=== PATIENT | female | born 1960 | race Caucasian/White ===

== ENCOUNTER 2019-05-18 19:59 | Emergency (ER) | payer BC, MEDICAID ==
[2019-05-18] MEDS ORDERED: NS 0.9% 1000 ML** 1,000 ML IV ONE (20:36)
[2019-05-18] MEDS ORDERED: Ondansetron INJ* 2 MG/ML VIAL IV ONE (20:36)
--- NOTE | 2019-05-18 20:39 | ED ---
Substance Abuse/Use - HPI Summary HPI Summary: This pt is a 59 Y/O F presenting to [facility] accompanied by her sister and her brother with a CC of alcohol abuse. She states that she doesnt sleep and is so exhausted. She states that she drank some wine throughout the day and did not take her medications. Her sister states that the pt has been vomiting all night without any relief. She states that she has not taken any medications throughout the night. She states that she has chronic low back pain. She states that she has extreme abdominal pain. She states that she has not SI or HI and states that she just wants to sleep throughout the night. She states that she wants help for her drinking. She states that she was drinking every night. There is a strong family history of alcoholism. She states that she drank a bottle of alcohol tonight but isnt sure what the bottle was. She denies any fevers, chills, CP, headaches, headaches, and diaphoresis. She states no alleviating factors. - History Of Current Complaint Chief Complaint: EDSubstanceAbuse Stated Complaint: POSS OVERDOSE Time Seen by Provider: 05/18/19 20:27 Hx Obtained From: Patient Onset/Duration of Drug/ETOH Abuse: Hours - since 1200 Ingestion History: Amount Ingested - unknown, Approximate Time Of Ingestion - 1200 Timing Of Abuse: Daily Severity Initially: Severe Severity Currently: Severe Character: Anxious Aggravating Factor(s): Recent Stress Alleviating Factor(s): Nothing Associated Signs And Symptoms: Negative - fevers, chills, CP, headaches, headaches, and diaphoresis., Sleep Disturbance, Nausea, Vomiting Related Hx: Recent Stressors - Allergies/Home Medications Allergies/Adverse Reactions: Allergies Allergy/AdvReac Type Severity Reaction Status Date / Time MS Fentanyl [Fentanyl] Allergy Intermediate Unknown Verified 12/24/18 13:32 Reaction Details MS Ciprofloxacin [From Cipro] AdvReac Intermediate Vomiting Verified 12/24/18 13 :32 MS Hydrocodone [Hydrocodone] AdvReac Intermediate Vomiting Verified 12/24/18 13: 32 PMH/Surg Hx/FS Hx/Imm Hx Previously Healthy: Yes Endocrine/Hematology History: Denies: Hx Diabetes Cardiovascular History: Denies: Hx Hypertension, Hx Pacemaker/ICD History: Denies: Hx Dialysis, Hx Renal Disease Musculoskeletal History: Reports: Other Musculoskeletal History - chronic low back pain Sensory History: Denies: Hx Hearing Aid Psychiatric History: Denies: Hx Panic Disorder - Cancer History Hx Chemotherapy: No Hx Radiation Therapy: No - Surgical History Surgery Procedure, Year, and Place: 03/21 FUSION AND LAMINECTOMY L2-L3 & 2012 FUSION L3-L4, [facility]. 1989 TUBAL LIGATION Infectious Disease History: No Infectious Disease History: Denies: Traveled Outside the [place] in Last 30 Days - Family History Known Family History: Positive: Other - alcoholism - Social History Occupation: Employed Full-time Lives: With Family Alcohol Use: Daily Hx Substance Use: No Substance Use Type: Reports: None Hx Tobacco Use: No Smoking Status (MU): Never Smoked Tobacco Review of Systems Negative: Fever, Chills, Skin Diaphoresis Negative: Chest Pain Negative: Shortness Of Breath Positive: Abdominal Pain, Vomiting, Nausea Negative: Headache Psychological: Other - Pt states she hasn't slept in months All Other Systems Reviewed And Are Negative: Yes Physical Exam - Summary Physical Exam Summary: Constitutional: Well-developed, Well-nourished, Alert. (-) Distressed Skin: Warm, Dry HENT: Normocephalic; Atraumatic Eyes: Conjunctiva normal Neck: Musculoskeletal ROM normal neck. (-) JVD, (-) Stridor, (-) Tracheal deviation Cardio: Rhythm regular, rate normal, Heart sounds normal; Intact distal pulses; The pedal pulses are 2+ and symmetric. Radial pulses are 2+ and symmetric. (-) Murmur Pulmonary/Chest wall: Effort normal. (-) Respiratory distress, (-) Wheezes, (-) Rales Abd: Soft, mild epigastric and lower abdominal tenderness, (-) Distension, (-) Guarding, (-) Rebound Musculoskeletal: (-) Edema Lymph: (-) Cervical adenopathy Neuro: Alert, Oriented x3 Psych: Mood and affect Normal Triage Information Reviewed: Yes Vital Signs On Initial Exam: Initial Vitals Temp Pulse Resp BP Pulse Ox 98 F 92 20 112/72 97 05/18/19 20:01 05/18/19 20:01 05/18/19 20:01 05/18/19 20:01 05/18/19 20:01 Vital Signs Reviewed: Yes Diagnostics - Vital Signs Vital Signs Temp Pulse Resp BP Pulse Ox 05/18/19 20:01 98 F 92 20 112/72 97 - Laboratory Result Diagrams: 05/18/19 21:01 05/18/19 21:01 Lab Statement: Any lab studies that have been ordered have been reviewed, and results considered in the medical decision making process. Course/Dx - Course Course Of Treatment: Patient is here after binge drinking. Patient has been dealing with alcoholism for the past year after her mother . Patient has no red flag symptoms of mental health. Patient had blood performed which showed INTOXICATION WITH NO OTHER ABNORMALITIES. PATIENT IS GIVEN RESOURCES FOR [facility] where she lives for help with her alcohol addiction. - Diagnoses Provider Diagnoses: Alcohol abuse, Alcohol intoxication, Depression Discharge ED - Sign-Out/Discharge Documenting (check all that apply): Patient Departure - discharge Patient Received Moderate/Deep Sedation with Procedure: No - Discharge Plan Condition: Stable Disposition: HOME Patient Education Materials: Depression (ED), Alcohol Withdrawal (ED), Alcohol Dependence (ED), Alcohol Use Disorder (ED) Referrals: Honey Terry [employer] [Primary Care Provider] - 2 Days Additional Instructions: PLEASE RETURN TO THE EMERGENCY DEPARTMENT FOR ANY NEW OR WORSENING SYMPTOMS. Please use the information provided to you to help with your drinking and depression. Follow up with your primary care provider in 1-3 days. - Billing Disposition and Condition Condition: STABLE Disposition: Home - Attestation Statements Document Initiated by Ge: Yes Documenting Scribe: Johnie Proctor Provider For Whom Ge is Documenting (Include Credential): Derrick Romero MD Scribe Attestation: Johnie Almanzar, scribed for Derrick Romero MD on 05/20/19 at 1119. Scribe Documentation Reviewed: Yes Provider Attestation: The documentation as recorded by the Johnie brian accurately reflects the service I personally performed and the decisions made by , Derrick Romero MD Status of Scribe Document: Viewed
[2019-05-18 21:10] LABS: ABS Lymphocytes 0.7 10^3/ul (1.0-4.8); ABS Monocytes 0.2 10^3/ul (0-0.8); ABS Neutrophils 4.4 10^3/ul (1.5-7.7); Eosinophil % 0.8 %; Hematocrit 44 % (35-47); Hemoglobin 14.7 g/dL (12.0-16.0); Lymphocyte % 12.7 %; Mean Corpuscular HGB Conc 34 g/dL (31-36); Mean Corpuscular Hemoglobin 32 pg (27-31); Mean Corpuscular Volume 95 fL (80-97); Mean Platelet Volume 7.3 fL (7.4-10.4); Nucleated Red Blood Cells % 0.1; Platelet Count 225 10^3/uL (150-450); Red Blood Count 4.61 10^6 /uL (3.70-4.87); Red Cell Distribution Width 13 % (10-15); White Blood Count 5.4 10^3/uL (3.5-10.8)
[2019-05-18 21:25] LABS: Albumin 4.3 g/dL (3.2-5.2); Albumin/Globulin Ratio 1.7 (1-3); BUN/Creatinine Ratio 23.4 (8-20); Calcium 8.9 mg/dL (8.6-10.3); EGFR African American 93.5 (>60); EGFR Non-African American 77.3 (>60); Globulin 2.6 g/dL (2-4); Potassium 3.8 mmol/L (3.5-5.0); Total Bilirubin 0.3 mg/dL (0.2-1.0); Total Protein 6.9 g/dL (6.4-8.9)
[2019-05-18 22:08] VITALS: BP 102/71
== END 2019-05-18 22:07 | disposition home or self-care (01) ==
LOC: ED 19:59
DX: F10.129 Alcohol abuse with intoxication, unspecified (principal); F32.9 Major depressive disorder, single episode, unspecified; R10.13 Epigastric pain; R10.30 Lower abdominal pain, unspecified; R11.2 Nausea with vomiting, unspecified; G89.29 Other chronic pain; M54.5 Low back pain; Z88.1 Allergy status to other antibiotic agents; Z88.5 Allergy status to narcotic agent
CPT/HCPCS: 36415; 80053; 80320; 83690; 85025; 96361; 96374; 99282; G0480; J2405

== ENCOUNTER 2021-11-09 10:09 | Observation (INO) ==
[~2021-11-09 10:09] MED LIST: Buffered Lidocaine 1% SYRIN 1 ml INTRADERM ONE; Lactated Ringers 1000 ml BAG 1,000 ML IV SCH
[2021-11-09] MEDS ORDERED: ceFAZolin 2 GM PREMIX 2 GM/50 ML BAG ONE (10:30)
[2021-11-09] MEDS ORDERED: Dexamethasone IV 4 MG/ML VIAL 1 ml VIAL ONE (12:46)
[2021-11-09] MEDS ORDERED: Rocuronium 50 mg VIAL 10 mg/ml 5 ml VIAL (50 mg) ONE (12:46)
[2021-11-09] MEDS ORDERED: Lidocaine 2% PF 5 ML VIAL ONE (12:46)
[2021-11-09] MEDS ORDERED: Midazolam 2 mg/2 ml VIAL 1 mg/ml 2 ml VIAL (2 mg) ONE (12:47)
[2021-11-09] MEDS ORDERED: fentaNYL 100 mcg/2 ml 50 MCG/ML VIAL ONE (12:47)
[2021-11-09] MEDS ORDERED: Bupivacaine 0.25% EPI 200,000 30 ML SDV ONE (13:13)
[2021-11-09] MEDS ORDERED: ceFAZolin VIAL VIAL ONE (13:13)
[2021-11-09] MEDS ORDERED: EPHEDrine (Pressors) 50 MG/ML VIAL ONE (13:48)
[2021-11-09] MEDS ORDERED: Sevoflurane BOTTLE ONE (13:58)
[2021-11-09] MEDS ORDERED: Bupivacaine 0.25% SDV 30 ML ONE ×2 (14:08→14:17)
[2021-11-09] MEDS ORDERED: BUPIVACAINE **LIPOSOME/PF 13.3 MG/ML (266MG/ 20ML) VIAL (RESTRICTED) INFIL ONE (14:15)
[2021-11-09] MEDS ORDERED: HYDROmorphone 1 MG/1 ML SYRINGE IV PRN (14:17)
[2021-11-09] MEDS ORDERED: Naloxone 0.4 mg VIAL 0.4 mg/ml 1 ml VIAL IV PRN (14:17)
[2021-11-09] MEDS ORDERED: Ondansetron 4 mg VIAL 2 MG/ML 2 ml VIAL IV PRN ×2 (14:17→18:21)
[2021-11-09] MEDS ORDERED: Propofol 10 mg/ml 100 ML BTL 100 ML ONE (14:30)
[2021-11-09] MEDS ORDERED: Propofol 10 mg/ml 100 ML BTL 0 ML ONE (16:38)
[2021-11-09] MEDS ORDERED: Propofol 10 MG/ML 20 ML BTL ONE ×2 (16:40→16:41)
[2021-11-09] MEDS ORDERED: Ondansetron 4 mg VIAL 2 MG/ML 2 ml VIAL ONE (16:55)
[2021-11-09] MEDS ORDERED: Magnesium Hydroxide LIQ 30 ML UDC PO PRN (18:21)
[2021-11-09] MEDS ORDERED: NS 0.9% 500 ml BAG 500 ML IV ONE (22:15)
[2021-11-10] MEDS ORDERED: Flu vaccine *QUAD* 2021-22* 0.5 ML SYRINGE IM ONE (09:00)
[2021-11-10 16:29] VITALS: BP 117/72
== END 2021-11-10 16:50 | disposition home or self-care (01) ==
LOC: SSU 10:09 → OR 10:09
PROVIDERS: ADMIT Neurological Surgery; ATTEND Neurological Surgery